=== PATIENT | male | born 1955 | race African-American/Black ===

== ENCOUNTER 2020-08-12 02:40 | Emergency (ER) | payer OTHER ==
[~2020-08-12] VITALS: Ht 165.1 cm; Wt 108.4 kg
[~2020-08-12 02:40] MED LIST: ALDACTONE50 MG; AMLACTIN400 GM TOP; AMLODIPINE BESY10 MG; ARTIFICIAL TEAR15 M1 OPHTHALMIC; ATORVASTATIN CA40 MG PO; AUGMENTIN 875875 MG PO; BAYER CHEWABLE81 MG PO; CARDURA4 MG; CLONIDINE HCL0.3 M3 PO; COREG25 MG PO; DEMADEX20 MG; DILANTIN100 MG PO; GABAPENTIN 100100 MG PO; HYDRALAZINE 5050 MG PO; HYDROCODONE-AP1 EAC6 PO; IMDUR 30 MG TAB30 M1 PO; MINOXIDIL10 MG; MIRALAX17 GM PO; NITROGLYCERIN0.4 MG SUBLING; OMEPRAZOLE20 M2 PO; OXCARBAZEPINE150 MG; PATANOL5 ML OPHTHALMIC; PEPCID20 MG PO; ROBITUSSIN COU118 M6; SALINE NASAL M126 ML NASAL; TRAMADOL 50 MG50 MG; TYLENOL325 MG PO; XOLIDO118 ML TOP; ZANAFLEX4 MG PO
[2020-08-12 03:28] LABS: ABSOLUTE NEUTROPHILS 2.7 thou/uL (1.4-8.2); BASOPHILS 0.6 % (0.0-2.0); EOSINOPHILS 0.2 % (0.0-3.0); HEMATOCRIT 34.8 % (42.0-52.0); HEMOGLOBIN 11.9 gm/dL (14.0-18.0); LYMPHOCYTES 10.6 % (24.0-44.0); MCH 32.3 pg (26.0-34.0); MCHC 34.2 g/dL (28.0-37.0); MCV 94.4 fL (80.0-100.0); MONOCYTES 15.1 % (1.0-8.0); PLATELET COUNT 86 thou/uL (150-400); POLYS 73.5 % (36.0-66.0); RBC 3.68 mil/uL (4.50-6.00); RDW 14.4 % (10.5-14.5); WBC 3.7 thou/uL (4.0-11.0)
[2020-08-12 03:39] LABS: ANION GAP 10 mmol/L (7-16); BUN 13 mg/dL (7-18); CALCIUM 8.8 mg/dL (8.5-10.1); CHLORIDE 104 mmol/L (98-107); CO2 29 mmol/L (21-32); CREATININE 1.5 mg/dL (0.7-1.3); GLUCOSE 142 mg/dL (74-106); POTASSIUM 3.9 mmol/L (3.5-5.1); SODIUM 143 mmol/L (136-145)
[2020-08-12 03:44] LABS: ALBUMIN 3.6 g/dL (3.4-5.0); DIRECT BILIRUBIN < 0.1 mg/dL (<0.1-0.2); SGOT 24 U/L (15-37); SGPT 27 U/L (16-63); TOTAL BILIRUBIN 0.3 mg/dL (0.2-1.0); TOTAL PROTEIN 7.2 g/dL (6.4-8.2); TROPONIN-I <0.06 ng/mL (<0.06)
[2020-08-12 04:18] LABS: PLATELET ESTIMATE DECREASED
[2020-08-12 07:37] LABS: URINE BILIRUBIN NEGATIVE (Negative); URINE BLOOD NEGATIVE (Negative); URINE CLARITY CLEAR; URINE COLOR YELLOW; URINE GLUCOSE-RANDOM* NEGATIVE (Negative); URINE KETONES NEGATIVE (Negative); URINE LEUKOCYTES-REFLEX NEGATIVE (Negative); URINE NITRITE-REFLEX NEGATIVE (Negative); URINE PROTEIN (DIPSTICK) 1+ (Negative); URINE UROBILINOGEN 0.2 E.U./dl (0.2-1.0)
[2020-08-12 07:50] LABS: CASTS None Seen /LPF (None Seen); SQUAMOUS 4-10 Moderate /LPF (0-3)
[2020-08-12 07:51] LABS: BACTERIA-REFLEX None Seen /HPF (None Seen); CRYSTALS None Seen /LPF (None Seen); URINE RBC None Seen /HPF (0-2); URINE WBC-REFLEX 0-5 Rare /HPF (0-5)
[2020-08-12 08:03] VITALS: BP 131/57
--- NOTE | 2020-08-14 07:34 | EKG ---
[place] [address] [facility] [place] [address] ELECTROCARDIOGRAM REPORT Name: BELL MOORE Room #: DEP Selvin#: [id number] Admission: 08/12/20 Attend Phys: Discharge: 08/12/20 Date of : 57 Report #: [id number] 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1955 Requested By: Marita Fink Order Number: [id number] MD: Sam Evans Measurements Intervals [place] Rate: 101 P: 40 MD: 215 QRS: -80 QRSD: 96 T: 48 QT: 355 QTc: 461 Interpretive Statements Sinus tachycardia Prolonged MD interval Inferior infarct, old Poor R wave progression Compared to ECG 03/26/2018 11:52:15 No significant changes found Electronically Signed On 08-14-2020 7:34:12 [employer]UCK DRIVING by Sam Evans [email or web address] <ELECTRONICALLY SIGNED> By: Sam Evans MD, [facility] 08/14/20 0734 0401 0401 Sam Evans MD, FACC /EPI
== END 2020-08-12 08:06 | disposition short-term general hospital (02) ==
LOC: ER 02:40
PROVIDERS: Emergency Medicine
DX: U07.1 COVID-19 (principal); I10 Essential (primary) hypertension; J44.9 Chronic obstructive pulmonary disease, unspecified; K21.9 Gastro-esophageal reflux disease without esophagitis; E78.5 Hyperlipidemia, unspecified; E66.9 Obesity, unspecified; F17.210 Nicotine dependence, cigarettes, uncomplicated; Z86.73 Personal history of transient ischemic attack (TIA), and cerebral infarction without residual deficits; Z68.39 Body mass index [BMI] 39.0-39.9, adult; Z79.899 Other long term (current) drug therapy; Z79.82 Long term (current) use of aspirin

== ENCOUNTER 2020-10-31 06:17 | Emergency (ER) | payer OTHER ==
[~2020-10-31] VITALS: Ht 167.6 cm; Wt 118.4 kg
[2020-10-31 10:53] VITALS: BP 136/74
== END 2020-10-31 10:53 ==
LOC: ER 06:17
DX: S00.03XA Contusion of scalp, initial encounter (principal); I11.0 Hypertensive heart disease with heart failure; I50.9 Heart failure, unspecified; I25.2 Old myocardial infarction; J44.9 Chronic obstructive pulmonary disease, unspecified; K21.9 Gastro-esophageal reflux disease without esophagitis; E78.5 Hyperlipidemia, unspecified; F17.210 Nicotine dependence, cigarettes, uncomplicated; Z79.82 Long term (current) use of aspirin; Z79.899 Other long term (current) drug therapy; Z91.09 Other allergy status, other than to drugs and biological substances; W06.XXXA Fall from bed, initial encounter; Y93.89 Activity, other specified; Y92.89 Other specified places as the place of occurrence of the external cause; Y99.8 Other external cause status

== ENCOUNTER 2020-11-05 23:18 | Inpatient (IN) | payer OTHER ==
[~2020-11-05] VITALS: Ht 167.6 cm; Wt 112.6 kg
[2020-11-05 23:26] VITALS: BP 134/67
[2020-11-05 23:46] LABS: ABSOLUTE NEUTROPHILS 3.1 thou/uL (1.4-8.2); EOSINOPHILS 1.6 % (0.0-3.0); HEMATOCRIT 30.8 % (42.0-52.0); HEMOGLOBIN 9.9 gm/dL (14.0-18.0); LYMPHOCYTES 15.2 % (24.0-44.0); MCH 31.1 pg (26.0-34.0); MCHC 32.3 g/dL (28.0-37.0); MCV 96.3 fL (80.0-100.0); MONOCYTES 8.4 % (1.0-8.0); PLATELET COUNT 106 thou/uL (150-400); POLYS 73.8 % (36.0-66.0); RBC 3.19 mil/uL (4.50-6.00); RDW 15.8 % (10.5-14.5); WBC 4.2 thou/uL (4.0-11.0)
[2020-11-05 23:52] LABS: ANION GAP 7 mmol/L (7-16); BUN 21 mg/dL (7-18); CALCIUM 8.6 mg/dL (8.5-10.1); CHLORIDE 105 mmol/L (98-107); CO2 30 mmol/L (21-32); CREATININE 1.4 mg/dL (0.7-1.3); GLUCOSE 116 mg/dL (74-106); POTASSIUM 4.6 mmol/L (3.5-5.1); SODIUM 142 mmol/L (136-145)
[2020-11-06] VITALS (11 sets, daily range): BP systolic 110–153; BP diastolic 56–77
[2020-11-06 00:02] LABS: ALBUMIN 3.6 g/dL (3.4-5.0); SGOT 21 U/L (15-37); SGPT 29 U/L (30-65); TOTAL BILIRUBIN 0.3 mg/dL (0.2-1.0); TOTAL PROTEIN 7.2 g/dL (6.4-8.2); TROPONIN-I <0.06 ng/mL (<0.06)
[2020-11-06] MEDS ORDERED: ALPRAZOLAM 0.0.25 MG PO (00:38)
[2020-11-06] MEDS ORDERED: ARTIFICIAL TEAR1510 OPHTHALMIC (00:38)
[2020-11-06] MEDS ORDERED: CATAPRES-TTS 20.2 MG TRANSDERM (00:39)
[2020-11-06] MEDS ORDERED: NEURONTIN300 MG PO (00:40)
[2020-11-06] MEDS ORDERED: HYDRALAZINE 2525 M1 PO (00:41)
[2020-11-06] MEDS ORDERED: LASIX 80 MG TAB80 MG PO (00:42)
[2020-11-06] MEDS ORDERED: HYDROCODON-ACE1 EA11 PO (00:42)
[2020-11-06] MEDS ORDERED: ZANAFLEX4 MG PO (00:44)
[2020-11-06] MEDS ORDERED: OMEPRAZOLE 20 M20 M1 PO (00:44)
[2020-11-06] MEDS ORDERED: POTASSIUM20 PO (00:44)
[2020-11-06] MEDS ORDERED: SPIRONOLACTONE50 MG PO (00:44)
[2020-11-06 02:43] LABS: BE(vivo) 1.2 mmol/L (-2 to +3); HCO3 26.3 mmol/L (22.0-26.0); PCO2 43.8 mmHg (35.0-45.0); pH 7.396 (7.360-7.450); sO2 98.8 % (92.0-98.0)
--- NOTE | 2020-11-06 05:44 | NUR ---
CT BACK. 2 NORTH UPDATED THAT PT WILL BE COMING OVER
[2020-11-06 05:50] LABS: BE(vivo) 3.5 mmol/L (-2 to +3); HCO3 29.7 mmol/L (22.0-26.0); PCO2 52.8 mmHg (35.0-45.0); PO2 83.6 mmHg (80.0-100.0); pH 7.368 (7.360-7.450); sO2 95.8 % (92.0-98.0)
--- NOTE | 2020-11-06 06:10 | NUR ---
RT completing shift change. Report that they will come over to the ER to help transport the patient as soon as they are finished.
--- NOTE | 2020-11-06 06:30 | NUR ---
Amber RT, to ER to help transport patient to CCU.
--- NOTE | 2020-11-06 12:40 | NUR ---
Met with patient who is A/Ox4. Patient resides ltc at [facility]. Patient reports he uses oxygen at facility. 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 Plan return once stable. patient in agreement with plan.
--- NOTE | 2020-11-06 14:54 | EKG ---
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
--- NOTE | 2020-11-06 17:52 | NUR ---
PT CARE ASSUMED AT 0700. ASSESSMENTS CHARTED. MEDICATIONS CHARTED. RAC IV. SINUS RHYTHM. EXTERNAL MALE CATHETER. O2 NC 4LPM. BIPAP ON S/B. COVID SWAB PERFORMED. JORDANA WARNING; PT PLACED IN REESE UNTIL WARNING WAS OVER.
[2020-11-07 03:45] VITALS: BP 119/62
--- NOTE | 2020-11-07 04:41 | NUR ---
ASSUMED CARE AT CHANGE OF SHIFT; AOX4/FORGETFUL AT TIMES; SR ON THE MONITOR; PATIENT REPORTS LIMITED VISION TO LT EYE S/P CVA WITH LEFT HEMIPARESIS UE/LE; CONTINUE 4L NC AND BIPAP AT [facility] WITH 02 SATS IN LOW-90s; NO COVERAGE REQUIRED 2100 ACCU CHECK; VSS/ASSESSMENTS CHARTED; WILL CONTINUE TO MONITOR AND FOLLOW POC.
[2020-11-07 05:26] LABS: CALCIUM 8.6 mg/dL (8.5-10.1); CREATININE 1.6 mg/dL (0.7-1.3); POTASSIUM 4.6 mmol/L (3.5-5.1)
[2020-11-07 07:30] VITALS: BP 137/71
[2020-11-07 07:44] LABS: HEMATOCRIT 27.9 % (42.0-52.0); HEMOGLOBIN 9.1 gm/dL (14.0-18.0); MCH 31.1 pg (26.0-34.0); MCHC 32.7 g/dL (28.0-37.0); MCV 95.3 fL (80.0-100.0); RBC 2.92 mil/uL (4.50-6.00); RDW 15.4 % (10.5-14.5); WBC 3.4 thou/uL (4.0-11.0)
--- NOTE | 2020-11-07 09:49 | 2DMMODE ---
[facility] [place] [address] 2 D/M-MODE ECHOCARDIOGRAM Name: BELL MOORE Room #: 211-P ADM IN M.R.#: [id number] Admission: 11/06/20 Attend Phys: Maurice Bustillos MD Discharge: Date of : 57 Report #: [id number] THIS REPORT FOR: cc: [facility] - Clinic physician unknown [facility] - Clinic physician unknown Justyn Elizabeth MD [facility] ~ APPROVED REPORT Study performed: 11/07/2020 09:02:16 EXAM: Comprehensive 2D, Doppler, and color-flow Echocardiogram Patient Location: Echo lab Room #: 211 Status: routine BSA: 2.24 HR: 69 bpm BP: 137/71 mmHg Rhythm: NSR Other Information Study Quality: Adequate Indications Short of breath, CHF. Hx: LA, stent, COVID-19, COPD, CVA, HTN, HLP. 2D Dimensions RVDd: 43.17 mm IVSd: 13.63 (7-11mm) LVOT Diam: 20.08 (18-24mm) LVDd: 57.88 mm PWd: 14.04 (7-11mm) Ascending Ao: 27.51 (22-36mm) LVDs: 40.89 (25-40mm) Aortic Root: 32.67 mm Volumes Left Atrial Volume (Systole) Single Plane 4CH: 80.51 mL Single Plane 2CH: 97.28 mL LA ESV Index: 42.00 mL/m2 Aortic Valve AoV Peak Sloitario.: 1.70 m/s AO Peak Gr.: 11.62 mmHg LVOT Max P.49 mmHg LVOT Max V: 1.06 m/s JING Vmax: 1.97 cm2 [facility] [address] [address] 2 D/M-MODE ECHOCARDIOGRAM Name: MOOREBELL ISSA Room #: 211-P [facility] IN [facility].#: [id number] Admission: 11/06/20 Attend Phys: Maurice Bustillos MD Discharge: Date of : 57 Report #: [id number] Mitral Valve E/A Ratio: 3.1 MV Decel. Time: 134.38 ms MV E Max Solitario.: 1.38 m/s MV A Solitario.: 0.45 m/s MV PHT: 38.97 ms IVRT: 83.04 ms Pulmonary Valve PV Peak Solitario.: 0.94 m/s PV Peak Gr.: 3.53 mmHg Pulmonary Vein P Vein S: 0.33 m/s P Vein D: 0.67 m/s P Vein S/D Ratio: 0.49 Tricuspid Valve TR Peak Solitario.: 3.24 m/s RAP Estimate: 15.00 mmHg TR Peak Gr.: 42.00 mmHg PA Pressure: 57.00 mmHg Left Ventricle Left ventricle is at the upper limits of normal. There is normal LV segmental wall motion. Mild concentric left ventricular hypertrophy. Left ventricular systolic function is normal. LVEF is 55%. Severe diastolic dysfunction is present (restrictive filling). Right Ventricle Right ventricle is at the upper limits of normal. Function appears normal. Atria Biatrial enlargement. Aortic Valve The aortic valve is normal in structure. No aortic regurgitation is present. There is no aortic valvular stenosis. Mitral Valve The mitral valve is normal in structure. Mild mitral regurgitation. No evidence of mitral valve stenosis. Tricuspid Valve The tricuspid valve is normal in structure. Mild tricuspid regurgitation. Estimated PAP is 55mmHg. [facility] [place] [address] 2 D/M-MODE ECHOCARDIOGRAM Name: BELL MOORE Room #: 211-P ADM IN .R.#: [id number] Admission: 11/06/20 Attend Phys: Maurice Bustillos MD Discharge: Date of : 57 Report #: [id number] Pulmonic Valve The pulmonary valve is normal in structure. Trace pulmonic regurgitation. Great Vessels The aortic root is normal in size. The ascending aorta is normal in size. IVC is dilated and collapses <50% with inspiration. Pericardium Small pericardial effusion. <Conclusion> Normal left ventricular size with mild concentric hypertrophy Ejection fraction 50-55% Grade 3 diastolic function Normal right ventricle size/function Mild biatrial enlargement Normal aortic valve structure and function Mild mitral valve insufficiency Mild tricuspid valve insufficiency Pulmonary systolic pressure estimated 55 mmHg Normal aortic root size Moderately dilated IVC but responsive to respiration Small pericardial effusion, no tamponade physiology <ELECTRONICALLY SIGNED> By: Justyn Elizabeth MD, FACC 11/07/2049 8 8 Justyn Elizabeth MD, FAC /INF
[2020-11-07 11:40] VITALS: BP 150/65
[2020-11-07 15:35] VITALS: BP 161/67
--- NOTE | 2020-11-07 17:27 | NUR ---
PT ALERT AND ORIENTED WITH FORGETFULNESS. PLEASANT AND COOPERATIVE WITH CARES. DENIED HAVING PAIN OR DISCOMFORT. NO CONCERNS AT THIS TIME. WILL CONTINUE WITH PLAN OF CARE.
[2020-11-07 20:23] VITALS: BP 155/68
--- NOTE | 2020-11-08 03:27 | NUR ---
ALERT AND ORIENTED, DENIES PAIN OR SOB, ON 2L NC AND BIPAP AND NIGHT, SATS STABLE, VSS, NO CONCERNS AT THIS TIME, ASSESSMENTS CHARTED, WILL CONTINUE TO MONITOR AND FOLLOW POC
[2020-11-08 04:28] VITALS: BP 168/79
[2020-11-08 05:52] LABS: HEMATOCRIT 29.5 % (42.0-52.0); HEMOGLOBIN 9.6 gm/dL (14.0-18.0); MCH 31.3 pg (26.0-34.0); MCHC 32.5 g/dL (28.0-37.0); MCV 96.2 fL (80.0-100.0); RBC 3.07 mil/uL (4.50-6.00); RDW 15.5 % (10.5-14.5); WBC 5.1 thou/uL (4.0-11.0)
[2020-11-08 06:44] LABS: CALCIUM 8.9 mg/dL (8.5-10.1); CREATININE 1.6 mg/dL (0.7-1.3); POTASSIUM 4.1 mmol/L (3.5-5.1)
[2020-11-08 09:10] VITALS: BP 162/73
--- NOTE | 2020-11-08 10:05 | EKG ---
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 : 1955 Requested By: Maurice Bustillos Order Number: [id number] MD: Justyn Elizabeth Measurements Intervals [place] Rate: 57 P: -21 AR: 198 QRS: -28 QRSD: 106 T: 1 QT: 484 QTc: 472 Interpretive Statements Sinus rhythm Borderline left axis deviation Low voltage, extremity and precordial leads Baseline wander in lead(s) V6 Compared to ECG 11/05/2020 23:45:25 No significant change Electronically Signed On 11-08-2020 10:05:24 CDT by Justyn Elizabeth [email or web address] <ELECTRONICALLY SIGNED> By: Justyn Elizabeth MD, FACC 11/08/20 1005 09 0904 Justyn Elizabeth MD, FAC /EPI
[2020-11-08 12:00] VITALS: BP 165/84
[2020-11-08 15:30] VITALS: BP 182/96
--- NOTE | 2020-11-08 19:20 | NUR ---
11/08/20 ASSUMED PATIENT CARE AT 0700. TRANSITIONED PATIENT FROM BIPAP TO 4 L NC. PATIENT STATED THAT HE DEVELOPED CHEST PAIN AFTER REMOVING BIPAP, REFUSES TO PUT BIPAP MASK BACK ON. DR. ASENCIO NOTIFIED, EKG AND TROPONIN OBTAINED, BOTH NEGATIVE. SHIELA WITH CARDIOLOGY AT BEDSIDE, ORDERED GI COCKTAIL. GI COCKTAIL GIVEN, CHEST PAIN RESOLVED. PATIENT CHEST PAIN FREE FOR THE REST OF THE SHIFT. PATIENT TITRATED UP TO 5L NC. HYPERTENSIVE THIS EVENING PRIOR TO GIVING BLOOD PRESSURE MEDICATIONS. PLAN TO WEAR BIPAP OVERNIGHT. WILL CONTINUE TO MONITOR.
[2020-11-08 19:27] VITALS: BP 171/76
[2020-11-08 23:15] VITALS: BP 156/64
--- NOTE | 2020-11-09 03:14 | NUR ---
ASSUMED PT CARE AT AROUND 1900, ALERT AND ORIENTED, ON 5L VIA NC TOLERATING WELL, PT BUT ON BIPAP AT NIGHT PER ORDERS, SR/SB ON THE MONITOR, DENIES CHEST PAIN OR SOB, REMAINS INCONTINENT OF BLADDER, EXTERNAL MALE CATH WITH ADEQUATE URINE OUTPUT, ASESSMENTS CHARTED, DENIES CONCERNS, WILL CONTINUE TO MONITOR AND FOLLOW POC
[2020-11-09 04:42] VITALS: BP 150/65
[2020-11-09 07:51] VITALS: BP 155/71
[2020-11-09 08:00] VITALS: BP 155/71
[2020-11-09 09:30] LABS: ABSOLUTE NEUTROPHILS 3.6 thou/uL (1.4-8.2); BASOPHILS 0.3 % (0.0-2.0); HEMATOCRIT 29.8 % (42.0-52.0); HEMOGLOBIN 9.6 gm/dL (14.0-18.0); LYMPHOCYTES 10.1 % (24.0-44.0); MCHC 32.4 g/dL (28.0-37.0); MCV 95.8 fL (80.0-100.0); MONOCYTES 5.7 % (1.0-8.0); POLYS 83.9 % (36.0-66.0); RBC 3.11 mil/uL (4.50-6.00); RDW 15.3 % (10.5-14.5); WBC 4.3 thou/uL (4.0-11.0)
[2020-11-09 09:46] LABS: CALCIUM 8.8 mg/dL (8.5-10.1); CREATININE 1.4 mg/dL (0.7-1.3); POTASSIUM 3.9 mmol/L (3.5-5.1)
[2020-11-09 10:03] LABS: PLATELET ESTIMATE DECREASED
[2020-11-09 10:05] LABS: PLATELET COUNT 77 thou/uL (150-400)
[2020-11-09 11:20] VITALS: BP 165/81
--- NOTE | 2020-11-09 12:01 | NUR ---
ASSUMED CARE OF PT AT 0700. TOOK BIPAP OFF OF HIM SO HE COULD TAKE HIS MORNING MEDS. HE IS ON 6L AND STATES HE IS BREATHING MUCH BETTER THAN YESTERDAY. WE ARE WAITING ON HIM TO WEAN OFF OF BIPAP AND THEN HE CAN RETURN TO HIS FACILITY.
[2020-11-09 15:25] VITALS: BP 186/84
[2020-11-09 20:04] VITALS: BP 174/73
[2020-11-10] VITALS (7 sets, daily range): BP systolic 146–203; BP diastolic 71–87
--- NOTE | 2020-11-10 05:13 | NUR ---
care assumed at 1900, awake, alert and oriented, denies pain or sob, pt remains on bipap at night o2sats stable, meds given as per oct, sr/sb on the monitor, bp elevated, car body mechanic notified, prn orders received and implemented, will continue to monitor and follow poc
[2020-11-10 05:21] LABS: CALCIUM 8.8 mg/dL (8.5-10.1); CREATININE 1.3 mg/dL (0.7-1.3); POTASSIUM 3.7 mmol/L (3.5-5.1)
[2020-11-10 05:28] LABS: HEMATOCRIT 29.9 % (42.0-52.0); HEMOGLOBIN 9.9 gm/dL (14.0-18.0); MCH 31.2 pg (26.0-34.0); MCV 94.4 fL (80.0-100.0); RBC 3.16 mil/uL (4.50-6.00); RDW 15.4 % (10.5-14.5); WBC 4.3 thou/uL (4.0-11.0)
--- NOTE | 2020-11-10 15:18 | NUR ---
Case discussed with the care team at rounds. No weekend dc anticipated d/t continued issues with respiratory distress. Pt continues on 6liters of o2 and bipap at [facility]. He normally uses 3liters and no bipap at the alf. Updated given to [employer] and dc systems requirements planner to fax clinical notes from today. They are holding his bed and can accept him for readmission once medically stable. Will follow.
--- NOTE | 2020-11-10 18:23 | NUR ---
ASSUMED CARE OF PT AT SHIFT CHANGE. ASSESSMENTS CHARTED MEDS GIVEN PER OCT. PT A&OX4, NO C/O PAIN OR DISTRESS DURING SHIFT. PLAN FOR DISCHARGE ON FRIDAY. WILL CONTINUE TO MONITOR FOR CHANGE AND FOLLOW POC.
[2020-11-11 03:23] VITALS: BP 160/72
--- NOTE | 2020-11-11 04:37 | NUR ---
PT IS ALERT AND ORIENTED X4. LUNGS ARE COARSE TO DIMINSIHED. WEARING HIS BIPAP AT NIGHT TO SLEEP. VOIDS PER URINAL AT BEDSIDE. DENIES ANY PAIN ISSUES. SINUS RHYTHM TO SINUS SHIREEN ON THE METAL RIVETING MACHINE OPERATOR. PT HAS 1 PLUS EDEMA BILAT TO LOWER EXTREMITIES. CALL LIGHT WITHIN REACH IF NEEDS FURTHER NURSING ASSESSMENT AT THIS TIME.
[2020-11-11 05:04] LABS: HEMATOCRIT 30.4 % (42.0-52.0); HEMOGLOBIN 10.2 gm/dL (14.0-18.0); MCH 31.2 pg (26.0-34.0); MCHC 33.4 g/dL (28.0-37.0); MCV 93.4 fL (80.0-100.0); RBC 3.26 mil/uL (4.50-6.00); RDW 14.9 % (10.5-14.5); WBC 4.4 thou/uL (4.0-11.0)
[2020-11-11 05:30] LABS: CALCIUM 8.9 mg/dL (8.5-10.1); CREATININE 1.4 mg/dL (0.7-1.3); POTASSIUM 3.4 mmol/L (3.5-5.1)
[2020-11-11 07:00] VITALS: BP 164/80
--- NOTE | 2020-11-11 10:10 | NUR ---
ASSUMED PT CARE AT 0700. ASSESSMENT AND MEDICATION PASS. RN AND HELMINTHOLOGIST PERFORMED BED BATH. VSS. WILL CONTINUE TO MONITOR. PT STATES HE THINKS HE IS GOING BACK TO FACILITY.
[2020-11-11] MEDS ORDERED: LEVOFLOXACIN500 MG PO (10:28)
[2020-11-11] MEDS ORDERED: IPRAT-ALBUT 0.5-3 ML INH (10:28)
[2020-11-11] MEDS ORDERED: NIFEDIPINE ER30 M1 PO (10:29)
[2020-11-11] MEDS ORDERED: PREDNISONE 5 MG5 M1 PO (10:30)
[2020-11-11 12:30] VITALS: BP 111/50
--- NOTE | 2020-11-11 16:10 | NUR ---
gave report to Viky at [place]. Per Tatiana in case management ems will be arriving between 1600 and 1700 to pick patient up.
--- NOTE | 2020-11-11 16:25 | NUR ---
FAXED DISCHARGE ORDERS, SUMMARY AND NEGATIVE COVID RESULT (11/06/20) TO [facility].TRANSPORTATION ARRANGED THROUGH [facility] [facility][id number]. [facility] TO TRANSPORT PATIENT BETWEEN 16:30-18:30. PATIENT'S SPOUSE CONTACTED. UNIT RN NOTIFIED AND ORDERS CALLED TO SHELLIE/LOR AT [facility]. CHART COPY COMPLETED. [facility] P [phone]; FAX [phone]
[2020-11-11 17:00] VITALS: BP 159/66
[2020-11-11 17:20] VITALS: BP 159/66
== END 2020-11-11 18:08 | DRG 291 ==
LOC: ER 23:18 → 2N 11-06 03:12 → ER 11-06 03:12 → EROBS 11-06 03:12 → 2N 11-06 04:40 → EROBS 11-06 04:40 → 2N 11-06 06:01 → EROBS 11-06 06:16 → 2N 11-06 10:39
PROVIDERS: Emergency Medicine; Internal Medicine Pulmonary Disease; ADMIT Hospitalist; ATTEND Hospitalist
PROC: 5A09357 Assistance with Respiratory Ventilation, Less than 24 Consecutive Hours, Continuous Positive Airway Pressure (ICD-10-PCS; principal; 2020-11-06)
PROC: 5A09357 Assistance with Respiratory Ventilation, Less than 24 Consecutive Hours, Continuous Positive Airway Pressure (ICD-10-PCS; 2020-11-07)
PROC: 5A09357 Assistance with Respiratory Ventilation, Less than 24 Consecutive Hours, Continuous Positive Airway Pressure (ICD-10-PCS; 2020-11-08)
PROC: 5A09357 Assistance with Respiratory Ventilation, Less than 24 Consecutive Hours, Continuous Positive Airway Pressure (ICD-10-PCS; 2020-11-09)
PROC: 5A09357 Assistance with Respiratory Ventilation, Less than 24 Consecutive Hours, Continuous Positive Airway Pressure (ICD-10-PCS; 2020-11-10)
PROC: 5A09357 Assistance with Respiratory Ventilation, Less than 24 Consecutive Hours, Continuous Positive Airway Pressure (ICD-10-PCS; 2020-11-11)
PROC: 5A0935A Assistance with Respiratory Ventilation, Less than 24 Consecutive Hours, High Flow/Velocity Cannula (ICD-10-PCS; 2020-11-11)
DX: I13.0 Hypertensive heart and chronic kidney disease with heart failure and stage 1 through stage 4 chronic kidney disease, or unspecified chronic kidney disease (principal); J96.21 Acute and chronic respiratory failure with hypoxia; I50.33 Acute on chronic diastolic (congestive) heart failure; J44.1 Chronic obstructive pulmonary disease with (acute) exacerbation; N17.9 Acute kidney failure, unspecified; I69.354 Hemiplegia and hemiparesis following cerebral infarction affecting left non-dominant side; Z68.41 Body mass index [BMI] 40.0-44.9, adult; K21.9 Gastro-esophageal reflux disease without esophagitis; I25.10 Atherosclerotic heart disease of native coronary artery without angina pectoris; E66.01 Morbid (severe) obesity due to excess calories; N18.9 Chronic kidney disease, unspecified; Z20.822 Contact with and (suspected) exposure to COVID-19; I25.2 Old myocardial infarction; Z86.16 Personal history of COVID-19; Z87.891 Personal history of nicotine dependence
CPT/HCPCS: 10081